=== PATIENT | female | born 1965 | race Caucasian/White ===

== ENCOUNTER 2020-09-28 09:24 | Outpatient (CLI) | payer BC, SELFPAY ==
--- NOTE | 2020-10-02 16:04 | WPDPFTINT ---
PFT Procedure Performed PFT Procedure Performed Plethysmography (Lung Vol) Diffusing Cap (DLCO) Flow Vol Loop PFT Interpretation DOS: 09/28/2020 REQUESTING: Dr Patrice Brambila; Primary is Dr. Laisha Seymour REASON FOR TESTING: Asthma PULMONARY FUNCTION TESTS Reproducibility is Grade B. testing is performed and results interpreted in accordance with the 2019 and 2005 ATS/ERS Task Force Guidelines. Spirometry: FEV1 is mildly decreased 65%, 1.65 L. FVC is 80%, normal. FEV1/ FVC is decreased, 64% predicted consistent with mild obstructive ventilatory impairment. There was no administration of bronchodilator. Lung volumes: Total lung capacity is mildly reduced 75% predicted showing a mild restrictive impairment. Vital capacity 80% predicted. This is normal. Residual volume 61% normal. The RV / TLC is 31% normal. No air trapping. increased iarway resistance 245%. Diffusion: DLCO is 63%, mildly decreased. This corrects for alveolar volume, DLCO/VA is 96%. Flow volume loop: Non-specific abnormal expiratory limb. IMPRESSION: Mild obstructive ventilatory defect, mild restriction, and a mild diffusion impairment without bronchodilator administration. This is a nonspecific pattern. It is not expected for asthma. This pattern may represent early interstitial lung disease. Clinical correlation advised. Consider chest CT. Bing Toth MD
== END 2020-09-28 09:25 | disposition home or self-care (01) ==
PROVIDERS: PCP Family Medicine
DX: G43.909 Migraine, unspecified, not intractable, without status migrainosus (principal); R06.09 Other forms of dyspnea
CPT/HCPCS: 94375; 94726; 94729